=== PATIENT | male | born 1955 | race Asian ===

== ENCOUNTER 2023-05-07 16:21 | Emergency (ER) | payer MEDICAID, OTHER ==
[~2023-05-07] VITALS: Ht 170.2 cm; Wt 68.0 kg
[2023-05-07 17:00] VITALS: BP_SYST 150; PULSE 69; RESP 18; TEMP 98; O2SAT 96
[2023-05-07] MEDS ORDERED: LIDOCAINE 1% 10 MG/ML, 20 ML MDV INJ ONE (17:30)
[2023-05-07] MEDS ORDERED: BACITRACIN 1 GM OINT TP ONE (17:30)
[2023-05-07] MEDS ORDERED: DIPHTH,PERTUSS(ACELL),TET VAC 0.5 ML VIAL (Tdap) I.M. ONE (17:30)
[2023-05-07] MEDS ORDERED: IBUP-1971 PO (17:58)
[2023-05-07] MEDS ORDERED: HYDR-3927 PO (17:58)
[2023-05-07] MEDS ORDERED: CEPH-548 PO (17:58)
[2023-05-07] MEDS ORDERED: IBUPROFEN 800 MG TABLET PO ONE (18:00)
[2023-05-07] MEDS ORDERED: cefTRIAXone 1 GM in LIDOCAINE 1%, 20 ML MDV 2.1 ML IM ONE (18:00)
[2023-05-07] MEDS ORDERED: HYDROcodone/ACETAMIN 10-325 MG TAB PO ONE (18:00)
[2023-05-07 18:29] VITALS: BP_SYST 148; PULSE 69; RESP 18; TEMP 98; O2SAT 96
== END 2023-05-07 18:29 | disposition home or self-care (01) ==
LOC: SED 16:21
DX: S61.216A Laceration without foreign body of right little finger without damage to nail, initial encounter (principal); M20.011 Mallet finger of right finger(s); Z79.899 Other long term (current) drug therapy; W20.8XXA Other cause of strike by thrown, projected or falling object, initial encounter; Y93.89 Activity, other specified; Y92.89 Other specified places as the place of occurrence of the external cause; Y99.8 Other external cause status
CPT/HCPCS: 99284; 73140; 90715; 96372; 90471; 12002; 29130; J0696; J2001

== ENCOUNTER 2023-05-25 14:23 | Emergency (ER) | payer OTHER ==
[~2023-05-25] VITALS: Ht 182.9 cm; Wt 68.0 kg
[~2023-05-25 14:23] MED LIST: CEPH-548 PO; HYDR-3927 PO; IBUP-1971 PO
[2023-05-25 14:44] VITALS: BP_SYST 135; PULSE 72; RESP 18; TEMP 98.3; O2SAT 98
== END 2023-05-25 15:09 | disposition home or self-care (01) ==
LOC: SED 14:23
DX: Z48.02 Encounter for removal of sutures (principal); Z79.899 Other long term (current) drug therapy
CPT/HCPCS: 99281